=== PATIENT | female | born 1985 | race Caucasian/White ===

== ENCOUNTER → 2021-07-18 08:16 | Outpatient (CLI) | payer OTHER, SELFPAY ==
--- NOTE | ~2021-07-18 | MMUS_ITS ---
EXAMINATION: MM diagnostic eyad BI w amy, US breast BI complete HISTORY: Left breast lump. Family history of breast cancer. TECHNIQUE: Bilateral full field and left spot ML, MLO and CC 3-D tomosynthesis images were performed and synthetic 2-D images were generated. CAD analysis was submitted and interpreted. High resolution bilateral complete breast ultrasound including all 4 quadrants and subareolar areas was performed. COMPARISON: None BREAST PARENCHYMAL COMPOSITION: The breasts are extremely dense, which lowers the sensitivity of mamm ography. FINDINGS: MAMMOGRAPHIC FINDINGS: There is very dense stroma throughout both breasts which may obscure masses. No architectural distort ion malignant calcification, skin thickening or retraction is detected. ULTRASOUND: Right breast: 8:00 5 cm from nipple: 4.4 x 2.7 x 5.1 mm simple cyst with through transmission posterior enhancement . Left breast: 12:00 5 cm from nipple: Parallel circumscribed 4.2 x 6 x 7.9 mm hypoechoic solid lesion without inter nal vascularity or posterior shadowing, consistent with benign process 12:00 4 cm from nipple: Parallel circumscribed hypoechoic solid lesion measuring 12 x 5 x 13 mm, with out internal vascularity or posterior shadowing, consistent with benign process 7:00 2 cm from nipple: Parallel circumscribed mildly irregular hypoechoic 7.5 x 20 x 15 mm solid lesi on without internal vascularity, with some through transmission. Subareolar area: Irregular parallel hypoechoic mass with some tentacle-like extensions, adjacent vasc ularity, measuring approximately 7 x 15 x 11 mm dimension. There is limited posterior shadowing. This lesion is suspicious. Ultrasound-guided biopsy is recommended. IMPRESSION: 1. Suspicious irregular 7 x 15 x 11 mm left subareolar breast mass and 7:00 2 cm from nipple mass 2. Ultrasound-guided biopsy of left subareolar and 7:00 masses is recommended BI-RADS category 4, suspicious findings. Dr. Mandujano telephoned the report and ultrasound guided biopsy recommendations on 07/18/2021 at [address] Javed. Reviewed, dictated and finalized at location A. IMPRESSION: 1. Suspicious irregular 7 x 15 x 11 mm left subareolar breast mass and 7:00 2 c m from nipple mass 2. Ultrasound-guided biopsy of left subareolar and 7:00 masses is recommended BI-RADS category 4, suspicious findings. Dr. Mandujano telephoned the report and ultrasound guided biopsy recommendations on 07/18/2021 [address] Javed.
== END ==
PROVIDERS: PCP Hospitalist; Visit Provider Advanced Practice Midwife
DX: R92.8 Other abnormal and inconclusive findings on diagnostic imaging of breast (principal)
CPT/HCPCS: 76641; 77062; 77066; G0279

== ENCOUNTER → 2022-01-29 14:12 | Outpatient (CLI) | payer OTHER, SELFPAY ==
--- NOTE | ~2022-01-29 | MMUS_ITS ---
EXAMINATION: MM diagnostic eyad BI w amy, US breast LT limited HISTORY: Follow-up left breast mass TECHNIQUE: Additional 3-D tomosynthesis images of the breasts were performed and synthetic 2-D images were generated. CAD analysis was submitted and interpreted. High resolution Limited left breast ultr asound was performed. COMPARISON: 07/18/2021 BREAST PARENCHYMAL COMPOSITION: The breasts are extremely dense, which lowers the sensitivity of mamm ography FINDINGS: MAMMOGRAPHIC FINDINGS: The breasts are stable. There are tissue markers in the lower inner quadrant of the left breast from interval biopsies. No suspicious masses, calcifications or architectural distortion are identified. ULTRASOUND: Complete bilateral US of all 4 quadrants of the breasts and retroareolar region was reviewed. Limited left breast ultrasound: At 7:00, 2 cm from the nipple there is an oval hypoechoic mass with p arallel orientation, posterior acoustic enhancement and minimal internal vascularity measuring 2.1 x 1.5 x 0.6 cm compared with 2.0 x 1.5 x 0.8 cm on prior examination. Near the areola there is an oval hypoechoic mass with parallel orientation, no posterior features and no internal vascularity measurin g 1 x 1.1 x 0.5 cm. This mass appears to contain a tissue marker from previous biopsy. This likely co rresponds to the lesion seen on prior examination which measured 1.5 x 0.7 x 1 cm. No other masses ar e identified. IMPRESSION: 1. Stable bilateral mammogram and left breast ultrasound. Left breast masses seen on ultrasound are s table compared with prior examination. At least one of these appears to contain a tissue marker from previous benign biopsy. Correlation with previous outside biopsy report for details. 2. Recommend 6 month follow-up Limited left breast ultrasound BI-RADS category 3, probably benign findings. Reviewed, dictated and finalized at location A. IMPRESSION: 1. Stable bilateral mammogram and left breast ultrasound. Left breast masses se en on ultrasound are stable compared with prior examination. At least one of th jeremy appears to contain a tissue marker from previous benign biopsy. Correlation with previous outside biopsy report for details. 2. Recommend 6 month follow-up Limited left breast ultrasound BI-RADS category 3, probably benign findings.
== END ==
PROVIDERS: PCP Hospitalist; Visit Provider Advanced Practice Midwife
DX: Z12.31 Encounter for screening mammogram for malignant neoplasm of breast (principal); N64.4 Mastodynia; R92.8 Other abnormal and inconclusive findings on diagnostic imaging of breast
CPT/HCPCS: 76642; 77062; 77066; G0279

== ENCOUNTER → 2023-05-07 16:13 | Outpatient (CLI) | payer OTHER, SELFPAY ==
--- NOTE | ~2023-05-07 | MM_ITS ---
EXAMINATION: MM screening eyad BI w amy HISTORY: Screening mammogram TECHNIQUE: Craniocaudal and mediolateral oblique 3-D tomosynthesis images were obtained and synthetic 2-D images were generated. CAD analysis was submitted and interpreted. COMPARISON: 01/29/2022 diagnostic bilateral mammogram and limited left breast ultrasound 07/18/2021 bilateral diagnostic mammography and bilateral complete breast ultrasound BREAST PARENCHYMAL COMPOSITION: The breasts are extremely dense, which lowers the sensitivity of mamm ography. FINDINGS: 2 biopsy markers on the left; history of prior benign breast biopsies. There is no evidenc e of suspicious mass, calcification, or architectural distortion to suggest malignancy in either [address]. There has been no suspicious interval change. IMPRESSION: 1. No mammographic evidence of malignancy. 2. Recommend routine screening mammography in one year. BI-RADS Category 1: Negative Reviewed, dictated and finalized at location A. [employer] NEEDS CAREGIVER
== END ==
PROVIDERS: PCP Nurse Practitioner Obstetrics & Gynecology; Visit Provider Nurse Practitioner Obstetrics & Gynecology
DX: Z12.31 Encounter for screening mammogram for malignant neoplasm of breast (principal)
CPT/HCPCS: 77063; 77067

== ENCOUNTER 2024-05-12 08:52 | Outpatient (CLI) | payer OTHER, SELFPAY ==
--- NOTE | ~2024-05-12 | MM_ITS ---
EXAMINATION: MM screening eyad BI w amy HISTORY: Screening TECHNIQUE: Craniocaudal and mediolateral oblique 3-D tomosynthesis images were obtained and synthetic 2-D images were generated. CAD analysis was submitted and interpreted. COMPARISON: Comparison to multiple prior studies sequentially, with oldest reviewed study dated 07/18. BREAST PARENCHYMAL COMPOSITION: Dense: The breasts are extremely dense, which lowers the sensitivity of mammography. FINDINGS: There is no evidence of suspicious mass, calcification, or architectural distortion to sugg est malignancy in either breast. There has been no suspicious interval change. IMPRESSION: 1. No mammographic evidence of malignancy. 2. Recommend routine screening mammography in one year. BI-RADS Category 1: Negative Reviewed, dictated and finalized at location B. [employer]ATOR
== END 2024-05-12 08:53 | disposition home or self-care (01) ==
LOC: MICIMG 08:52
PROVIDERS: PCP Obstetrics & Gynecology; Visit Provider Obstetrics & Gynecology
DX: Z12.31 Encounter for screening mammogram for malignant neoplasm of breast (principal)
CPT/HCPCS: 77063; 77067